=== PATIENT | female | born 1950 | race Caucasian/White ===

== ENCOUNTER → 2016-10-16 | Outpatient (CLI) | payer MEDICARE, BC ==
[2016-06-23 10:50] VITALS: BP 116/72
[~2016-10-16] MED LIST: ASPI81TA2 PO; HYDR50TA6 PO; LISI-334 PO; MULT-245 PO; OXYC1TAB7 PO; PANT40TA3 PO; TEMA30CA PO; [UNRECOGNIZED DRUG - OTHER] PO
--- NOTE | 2016-10-16 12:00 | KCIC ---
PROCEDURE MRI thoracic spine without contrast. HISTORY Cervical thoracic radiculopathy, numbness in the right hand, previous anterior cervical fusion, pain and tingling in the right arm TECHNIQUE Multiplanar, multi sequential non contrast MR imaging was performed of the thoracic spine. Contrast: None COMPARISON None FINDINGS When counting on the composite view of the spine, there are 6 lumbar type vertebral bodies. Focus of decreased T2 signal of the visualized L3 vertebral body on the localizer is otherwise difficult to characterize although grossly unchanged comparing with 2015 lumbar spine MRI exam. Thoracic vertebral body stature and AP alignment are adequate. Thoracic cord caliber is within normal limits without significant focal signal abnormality. There is a tiny focus of marrow signal abnormality of the posterior T10 vertebral body which is hypointense on T1 and T2 sequences, faintly hyperintense on the STIR sequence. This measures up to approximately 4 millimeters. There is a small likely hemangioma anteriorly of the T9 vertebral body slightly hyperintense on all sequences. There is mild degenerative disc disease centered about mid thoracic levels greatest T5-T6 through T10-T11. There is a shallow extrusion extending above the T6-7 intervertebral disc space in the left paracentral region without spinal stenosis. Otherwise there is no other significant focal posterior disc abnormality of the thoracic spine. Thoracic neural foramina are not significantly narrowed. There is no significant thoracic spinal stenosis. There are T2 hyperintense lesions of the visualized right kidney, largest 20 millimeters. IMPRESSION 1. There is no significant thoracic spinal stenosis or neural foramina compromise. There is a shallow extrusion extending above the T6-7 intervertebral disc space without spinal stenosis. There is mild degenerative disc disease centered about mid to inferior thoracic levels. 2. T2 hyperintense foci of the visualized right kidney are more likely due to cysts. 3. Small focus of marrow signal abnormality of the T10 vertebral body is otherwise difficult to characterize, possibly a small atypical hemangioma, more aggressive marrow replacing lesion considered less likely. Focus of marrow signal change of the L3 vertebral body is similar to 2015 exam. Electronically signed by: Kodi Coleman MD (Oct 16, 2016 11:59:59)
--- NOTE | 2016-10-16 12:55 | KCIC ---
PROCEDURE MRI cervical spine without contrast. HISTORY Radiculopathy, numbness in the right hand, previous anterior cervical fusion, pain, tingling in the right arm TECHNIQUE Sagittal and axial T2, sagittal T1, sagittal STIR images were acquired of the cervical spine Contrast: COMPARISON October 15, 2014 FINDINGS There is some motion degradation. Since the previous exam, there has been anterior cervical fusion C5-C6. Exam does not accurately evaluate integrity of hardware. Interbody fusion at these levels not apparent. Cervical cord caliber is within normal limits, no significant focal signal abnormality. Cervical vertebral body stature is unchanged. There is negligible anterior spondylolisthesis at C4-5 and C7-T1. There is again moderate to severe degenerative disc disease C6-7, minimally at C7-T1. C2-3: Spinal canal and neural foramina are adequate. C3-C4: Spinal canal and neural foramina are adequate. There is mild to moderate facet hypertrophic change. C4-5: There is moderate to severe facet degenerative change. There is posterior annular tear. Spinal canal is adequate. Neural foramina are overall adequate. C5-C6: There is again disc osteophyte complex more eccentric to the right lateral recess, indentation upon the ventral thecal sac in right lateral recess. Central canal is minimally narrowed to 8 millimeters with a somewhat greater degree of right lateral recess stenosis as seen previously. There is uncovertebral degenerative change. There is again at least moderate narrowing of the right neural foramen. Left neural foramen is overall adequate. C6-7: There is again disc osteophyte complex and bulge. Central canal is minimally narrowed to 8-9 millimeters. There is again mild narrowing of the right neural foramen, left neural foramen overall adequate C7-T1: Previously seen right paracentral protrusion is not as prominent. Central canal is borderline 10 millimeters. Neural foramina are adequate. IMPRESSION 1. Comparing with the october 2014 exam, there has been anterior cervical fusion C5-C6. There is again moderate degenerative disc disease at C6-7. There is multilevel mild spondylosis. There is mild spinal stenosis at C5-C6 and C6-C7 as described. There is again at least moderate narrowing of the right C5-C6 neural foramen in part from uncovertebral degenerative change, minimal narrowing on the right at C6-7. Electronically signed by: Kodi Coleman MD (Oct 16, 2016 12:53:53)
== END | disposition home or self-care (01) ==
LOC: KCIC MRI 08:58
PROVIDERS: ATTEND Family Medicine
DX: M54.13 Radiculopathy, cervicothoracic region (principal)
CPT/HCPCS: 72141; 72146